=== PATIENT | male | born 1960 | race Caucasian/White ===

== ENCOUNTER 2020-07-01 15:23 | Emergency (ER) | payer MEDICAID, SELFPAY ==
[~2020-07-01] VITALS: Ht 172.7 cm; Wt 136.1 kg
[2020-07-01 15:23] VITALS: BP_SYST 131
[2020-07-01] MEDS ORDERED: ALBUTEROL MDI INHALATION 8 GM INH INH ONE (17:30)
[2020-07-01 18:00] VITALS: BP_SYST 136
== END 2020-07-01 18:05 | disposition home or self-care (01) ==
LOC: SED 15:23
DX: R05 Cough (principal); I10 Essential (primary) hypertension; Z20.822 Contact with and (suspected) exposure to COVID-19
CPT/HCPCS: 36415; 71045; 99284